=== PATIENT | female | born 1970 | race Two or more races ===

== ENCOUNTER 2025-04-13 08:51 | Outpatient (CLI) | payer OTHER | END 2025-04-13 08:56 | disposition home or self-care (01) | LOC: MAMO-SONO 08:51 | DX: Z12.39 Encounter for other screening for malignant neoplasm of breast (principal); Z12.31 Encounter for screening mammogram for malignant neoplasm of breast ==

== ENCOUNTER → 2025-04-13 10:55 | Outpatient (CLI) | payer OTHER ==
[2025-04-13 12:06] LABS: BASO % 0.5 % (0.1-1.2); EOS # 0.22 (0.04-0.54); EOS % 1.9 % (0.7-7.0); LYMPH # 4.61 (1.18-3.74); LYMPH % 40.4 % (19.3-53.1); MEAN PLATELET VOLUME 10.20 fl (9.4-12.4); MONO # 0.63 (0.24-0.82); MONO % 5.5 % (4.7-12.5); NEUT # 5.86 (1.56-6.13); NEUT % 51.4 % (34.0-71.1); RED CELL DISTRIBUTION WIDTH 14.4 % (11.6-14.4)
[2025-04-13 12:36] LABS: ALT/SGPT 18.0 U/L (12-78); AST/SGOT 10.0 U/L (15-37); BILIRUBIN TOTAL 0.71 mg/dL (0.3-1.2); BUN CREA RATIO 19.0 (7.0-25.0); CHOL HDL RATIO 4.1 (0-5.0); CREATININE SERUM 0.43 mg/dL (0.55-1.02); GFR 152.45; GLOBULINA 4.3 G/DL (2.4-3.5); GLUCOSE FASTING 126.0 mg/dL (65-100); HDL 46.0 mg/dl (40-60); LDL 107.0 mg/dl (0-130); OSMOLALITY SERUM 279.0 MOSM/KG (275-295); VLDL 35.0 (0-39)
[2025-04-13 13:08] LABS: VITAMIN D3 25 HYDROXY 15.49 ng/ml (30-120)
== END | disposition home or self-care (01) ==
LOC: LAB 10:55
DX: E11.65 Type 2 diabetes mellitus with hyperglycemia (principal); Z13.0 Encounter for screening for diseases of the blood and blood-forming organs and certain disorders involving the immune mechanism; E78.00 Pure hypercholesterolemia, unspecified; E03.9 Hypothyroidism, unspecified; E55.9 Vitamin D deficiency, unspecified; E53.8 Deficiency of other specified B group vitamins; R53.83 Other fatigue; R80.9 Proteinuria, unspecified; N30.00 Acute cystitis without hematuria; Z12.11 Encounter for screening for malignant neoplasm of colon